=== PATIENT | female | born 1990 | race African-American/Black ===

== ENCOUNTER 2017-01-28 18:23 | Emergency (ER) | payer OTHER ==
[~2017-01-28] VITALS: Ht 160 cm; Wt 58.2 kg
[~2017-01-28 18:23] MED LIST: PNV1CAPS42 PO
[2017-01-28] MEDS ORDERED: CLIN-78 PO (18:41)
[2017-01-28] MEDS: CefTRIAXone SODIUM 1 GM/VIAL IM ONE (21:44)
[2017-01-28] MEDS: LIDOCAINE HCL/PF 1% 2 ML VIAL IM ONE (21:45)
[2017-01-28 22:02] VITALS: BP 122/81
== END 2017-01-28 22:02 | disposition home or self-care (01) ==
LOC: EMS 18:24
DX: N61.1 Abscess of the breast and nipple (principal); J45.909 Unspecified asthma, uncomplicated; F17.210 Nicotine dependence, cigarettes, uncomplicated
CPT/HCPCS: 96372; 99284; J0696; J3490

== ENCOUNTER 2018-04-10 10:27 | Emergency (ER) | payer SELFPAY ==
[~2018-04-10] VITALS: Ht 170.2 cm; Wt 59.1 kg
[~2018-04-10 10:27] MED LIST changes: +CLIN300C9 PO; -PNV1CAPS42 PO
[2018-04-10] MEDS ORDERED: ONDANSETRON HCL 4 MG/2 ML VIAL ONE (10:31)
[2018-04-10] MEDS ORDERED: LORazepam 2 MG/ML VIAL ONE (10:32)
[2018-04-10] MEDS ORDERED: MORPHINE SULFATE 4 MG/ML SYRINGE ONE (10:32)
[2018-04-10] MEDS ORDERED: PERTUSS(ACELL),DIPH,TET VAC/PF 0.5 ML VIAL IM ONE ×2 (10:34→10:45)
[2018-04-10] MEDS ORDERED: MORPHINE SULFATE 4 MG/ML SYRINGE IVP ONE (10:45)
[2018-04-10] MEDS ORDERED: ONDANSETRON HCL 4 MG/2 ML VIAL IVP ONE (10:45)
[2018-04-10] MEDS ORDERED: SODIUM CHLORIDE 0.9% 1,000 ML IV ONE (10:45)
[2018-04-10] MEDS ORDERED: CeFAZolin 1 GM/DEXTROSE 50 ML IV ONE (10:45)
[2018-04-10] MEDS ORDERED: LORazepam 2 MG/ML VIAL IVP ONE (10:45)
[2018-04-10 10:57] VITALS: BP 133/87
== END 2018-04-10 11:23 | disposition short-term general hospital (02) ==
LOC: EMS 10:28
DX: S01.25XA Open bite of nose, initial encounter (principal); J45.909 Unspecified asthma, uncomplicated; F17.210 Nicotine dependence, cigarettes, uncomplicated; W54.0XXA Bitten by dog, initial encounter; Y93.89 Activity, other specified; Y92.89 Other specified places as the place of occurrence of the external cause; Y99.8 Other external cause status
CPT/HCPCS: 90471; 90715; 96374; 96375; 99284; J0690; J2060; J2270; J2405

== ENCOUNTER 2019-02-25 12:06 | Emergency (ER) | payer OTHER ==
[~2019-02-25] VITALS: Ht 160 cm; Wt 58.2 kg
[2019-02-25 13:08] LABS: BASOPHILS % (AUTO) 0.8 % (0.0-2.0); EOSINOPHILS % (AUTO) 5.9 % (1.0-6.0); HEMATOCRIT 34.8 % (36-46); HEMOGLOBIN 10.9 g/dL (12.0-16.0); LYMPHOCYTES # (AUTO) 3.2 K/uL (1.0-4.8); LYMPHOCYTES % (AUTO) 25.1 % (22.0-44.0); MEAN CORPUSCULAR HEMOGLOBIN 22.4 pg (26.0-34.0); MEAN CORPUSCULAR HGB CONC 31.4 G/dL (31.0-37.0); MEAN CORPUSCULAR VOLUME 71 fL (80-100); MONOCYTES # (AUTO) 0.8 K/uL (0.1-1.0); MONOCYTES % (AUTO) 6.3 % (2.0-9.0); NEUTROPHILS # (AUTO) 7.8 K/uL (1.8-7.7); NEUTROPHILS % (AUTO) 61.9 % (40.0-70.0); PLATELET COUNT (AUTO) 290 K/uL (150-450); RED BLOOD CELL COUNT(AUTO) 4.89 MIL/uL (4.00-5.20); RED CELL DISTRIBUTION WIDTH 15.3 % (11.5-14.5)
[2019-02-25 13:19] LABS: APPEARANCE,URINE CLEAR (CLEAR); BILIRUBIN,URINE NEGATIVE (NEGATIVE); GLUCOSE, URINE (UA) NEGATIVE (NEGATIVE); KETONES,URINE NEGATIVE (NEGATIVE); LEUKOCYTE ESTERASE ,URINE NEGATIVE (NEGATIVE); NITRATE,URINE NEGATIVE (NEGATIVE); PROTEIN,URINE NEGATIVE (NEGATIVE)
[2019-02-25 13:21] LABS: BACTERIA,URINE None Seen /HPF (None Seen); OCCULT BLOOD,URINE SMALL (NEGATIVE); SQUAMOUS EPITHELIAL CELL,UR Rare /LPF (None Seen); WBC,URINE None Seen /HPF (0-5)
[2019-02-25 13:53] LABS: PROTHROMBIN TIME 10.7 SEC (9.4-11.6)
[2019-02-25] MEDS ORDERED: IBUPROFEN 600 MG TABLET PO ONE (15:00)
[2019-02-25 15:17] VITALS: BP 117/55
== END 2019-02-25 15:21 | disposition home or self-care (01) ==
LOC: EMS 12:08
DX: O03.9 Complete or unspecified spontaneous abortion without complication (principal); J45.909 Unspecified asthma, uncomplicated; F17.210 Nicotine dependence, cigarettes, uncomplicated; Z3A.01 Less than 8 weeks gestation of pregnancy
CPT/HCPCS: 76801; 76817; 86901

== ENCOUNTER 2025-03-29 19:26 | Emergency (ER) | payer MEDICAID, OTHER ==
[~2025-03-29] VITALS: Ht 165.1 cm; Wt 150.0 kg
[2025-03-29 20:39] LABS: BASOPHILS % (AUTO) 0.3 % (0.0-2.0); EOSINOPHILS % (AUTO) 1.7 % (1.0-6.0); HEMATOCRIT 34.9 % (36-46); LYMPHOCYTES # (AUTO) 1.9 K/uL (1.0-4.8); LYMPHOCYTES % (AUTO) 8.4 % (22.0-44.0); MEAN CORPUSCULAR HEMOGLOBIN 22.7 pg (26.0-34.0); MEAN CORPUSCULAR HGB CONC 31.5 G/dL (31.0-37.0); MEAN CORPUSCULAR VOLUME 72 fL (80-100); MONOCYTES # (AUTO) 1.3 K/uL (0.1-1.0); MONOCYTES % (AUTO) 5.6 % (2.0-9.0); PLATELET COUNT (AUTO) 285 K/uL (150-450); RED BLOOD CELL COUNT(AUTO) 4.85 MIL/uL (4.00-5.20); RED CELL DISTRIBUTION WIDTH 16.3 % (11.5-14.5); WHITE BLOOD COUNT (AUTO) 22.6 K/uL (4.5-11.0)
[2025-03-29 20:44] LABS: ANION GAP 8 mmol/L (8-16); CALCIUM, TOTAL 8.3 mg/dL (8.8-10.5); CARBON DIOXIDE 27 mmol/L (22-29); CHLORIDE 104 mmol/L (98-107); CREATININE 1.05 mg/dL (0.60-1.30); GLOMERULAR FILTR. RATE CALC > 60 mL/min (>60); GLUCOSE,RANDOM 180 mg/dL (70-110); POTASSIUM 3.2 mmol/L (3.5-5.1); SODIUM SERUM 139 mmol/L (136-145); UREA NITROGEN, BLOOD 17 mg/dL (7-18)
[2025-03-29 20:46] LABS: RBC MORPHOLOGY COMMENT ABNORMAL RBC MORPH
[2025-03-29 20:54] LABS: TROPONIN I-HIGH SENSITIVITY 10 ng/L (<51)
[2025-03-29 21:46] LABS: APPEARANCE,URINE CLEAR (CLEAR); BILIRUBIN,URINE NEGATIVE (NEGATIVE); COLOR,URINE LIGHT YELLOW (YELLOW); GLUCOSE, URINE (UA) 70-100 mg/dL (NEGATIVE); KETONES,URINE NEGATIVE (NEGATIVE); LEUKOCYTE ESTERASE ,URINE SMALL (NEGATIVE); NITRATE,URINE NEGATIVE (NEGATIVE); OCCULT BLOOD,URINE NEGATIVE (NEGATIVE); PH,URINE 5.5 (5.0-8.0); PH,URINE DRUG SCREEN 5.5 (5.0-8.0); PROTEIN,URINE TRACE mg/dL (NEGATIVE); SPECIFIC GRAVITIY, URINE 1.019 (1.003-1.030); UROBILINOGEN,URINE <=1.0 mg/dL (<=1.0)
[2025-03-29 21:55] LABS: ALCOHOL, URINE DRUG SCREEN NEGATIVE (NEGATIVE); AMPHET/METH SCREEN,URINE NEGATIVE (NEGATIVE); BARBITURATE SCREEN, URINE NEGATIVE (NEGATIVE); BENZODIAZEPINES SCREEN,URINE NEGATIVE (NEGATIVE); CANNABINOID SCREEN,URINE POSITIVE (NEGATIVE); COCAINE SCREEN,URINE POSITIVE (NEGATIVE); METHADONE SCREEN, URINE NEGATIVE (NEGATIVE); OPIATE SCREEN,URINE NEGATIVE (NEGATIVE); PHENCYCLIDINE SCREEN,URINE NEGATIVE (NEGATIVE)
[2025-03-29 21:59] LABS: RBC,URINE 0-2 /HPF (0-2)
[2025-03-29 22:00] LABS: BACTERIA,URINE Few /HPF (None Seen); HYALINE CASTS, URINE 0-2 /LPF (None Seen); SQUAMOUS EPITHELIAL CELL,UR Moderate /LPF (None Seen)
[2025-03-29] MEDS: ONDANSETRON 4 MG TABLET PO ONE (22:18)
[2025-03-29] MEDS: ACETAMINOPHEN 500 MG TABLET PO ONE (22:18)
[2025-03-29] MEDS: POTASSIUM CHLORIDE 20 MEQ ER TABLET PO ONE (22:19)
[2025-03-29] MEDS: METOCLOPRAMIDE HCL 10 MG TABLET PO ONE (23:57)
[2025-03-29] MEDS: IBUPROFEN 400 MG TABLET PO ONE (23:57)
[2025-03-30 00:57] VITALS: BP 145/75; PULSE 80; RESP 16; O2SAT 98
== END 2025-03-30 02:29 | disposition home or self-care (01) ==
LOC: EMS 19:26
DX: T40.411A Poisoning by fentanyl or fentanyl analogs, accidental (unintentional), initial encounter (principal); F19.10 Other psychoactive substance abuse, uncomplicated; E87.6 Hypokalemia; R11.2 Nausea with vomiting, unspecified; J45.909 Unspecified asthma, uncomplicated; F17.210 Nicotine dependence, cigarettes, uncomplicated; Z87.59 Personal history of other complications of pregnancy, childbirth and the puerperium; Z79.899 Other long term (current) drug therapy; Y92.89 Other specified places as the place of occurrence of the external cause
CPT/HCPCS: 99284; 80048; 81001; 83880; 84484; 85025; 36415; 93005; 80307; Q0162